=== PATIENT | male | born 1980 | race Caucasian/White ===

== ENCOUNTER 2016-08-20 13:54 | Emergency (ER) | payer BC ==
[2016-08-20 14:18] VITALS: BP 126/86; PULSE 86; RESP 18; TEMP 98.4; O2SAT 98
[2016-08-20] MEDS ORDERED: Bacitracin 500 Units/gm Oint Foilpak UD ONE (15:05)
--- NOTE | 2016-08-20 15:06 | C.PDOC ---
History Of Present Illness 36 year old patient presents to the ED complaining of pain and swelling to the medial aspect of the left foot. Patient reports he was cleaning his BBQ a few days ago and he put the lid on the floor. He accidentally kicked the lid and sustained a shallow laceration to his foot. He notes some bleeding at that time. Today, he followed up with his PMD because he notes swelling and discoloration. He was sent to the ED by his PMD for a TD booster and evaluation. Patient denies fever, numbness or weakness. Time Seen by Provider: 08/20/16 14:22 Chief Complaint (Nursing): Abnormal Skin Integrity History Per: Patient History/Exam Limitations: no limitations Onset/Duration Of Symptoms: Days (few days ago), Worse Since (today) Current Symptoms Are (Timing): Still Present Location Of Injury: Left: Foot (medial aspect) Quality Of Symptoms: Painful, Swollen, Other (discolored) Severity: Mild Pain Scale Rating Of: 3 Recent travel outside of the [place]: No Past Medical History Reviewed: Historical Data, Nursing Documentation, Vital Signs Vital Signs: Last Vital Signs Temp 98.4 F 08/20/16 14:16 Pulse 86 08/20/16 14:16 Resp 18 08/20/16 14:16 BP 126/86 08/20/16 14:16 Pulse Ox 98 08/20/16 18:40 - [facility] Procedures APPLICATION OF SPLINT (10/30/13) Family History: States: Unknown Family Hx - Social History Hx Tobacco Use: No Hx Alcohol Use: No Hx Substance Use: No - Immunization History Hx Tetanus Toxoid Vaccination: No Hx Influenza Vaccination: No Hx Pneumococcal Vaccination: No Review Of Systems Except As Marked, All Systems Reviewed And Found Negative. Constitutional: Negative for: Fever Musculoskeletal: Positive for: Foot Pain (left) Skin: Positive for: Other (laceration to left foot) Neurological: Negative for: Weakness, Numbness Physical Exam - Physical Exam Appears: Non-toxic, No Acute Distress Skin: Warm, Dry Cardiovascular: Rhythm Regular Extremity: Normal ROM, No Pedal Edema, No Calf Tenderness, Capillary Refill (<2 seconds), No Deformity, Other (left foot: bruising ot the medial aspect of the foot with a shallow, linear laceration, (+)warmth (+)full ROM) ED Course And Treatment O2 Sat by Pulse Oximetry: 98 (room air) Pulse Ox Interpretation: Normal Progress Note: Plan: Tetanus Disposition - Disposition Disposition: HOME/ ROUTINE Disposition Time: 15:09 Condition: STABLE Prescriptions: Cephalexin [Keflex] 500 mg PO TID #40 capsule Instructions: Laceration Without Closure (ED) Forms: General Discharge Instructions - Clinical Impression Clinical Impression: Laceration, Laceration of foot - Scribe Statement Steph Cazares Provider Attestation: All medical record entries made by the Bethibisaac were at my direction and personally dictated by me. I have reviewed the chart and agree that the record accurately reflects my personal performance of the history, physical exam, medical decision making, and the department course for this patient. I have also personally directed, reviewed, and agree with the discharge instructions and disposition.
--- NOTE | 2016-08-20 15:09 | C.PDOC ---
Time Seen by Provider: 08/20/16 14:22 Chief Complaint (Nursing): Abnormal Skin Integrity Past Medical History Vital Signs: Last Vital Signs Temp 98.4 F 08/20/16 14:16 Pulse 86 08/20/16 14:16 Resp 18 08/20/16 14:16 BP 126/86 08/20/16 14:16 Pulse Ox 98 08/20/16 14:16 - [facility] Procedures APPLICATION OF SPLINT (10/30/13) - Social History Hx Tobacco Use: No Hx Alcohol Use: No Hx Substance Use: No - Immunization History Hx Tetanus Toxoid Vaccination: No Hx Influenza Vaccination: No Hx Pneumococcal Vaccination: No ED Course And Treatment O2 Sat by Pulse Oximetry: 98 Disposition Counseled Patient/Family Regarding: Studies Performed, Diagnosis, Rx Given - Disposition Disposition: HOME/ ROUTINE Disposition Time: 15:09 Condition: STABLE Prescriptions: Cephalexin [Keflex] 500 mg PO TID #40 capsule Instructions: Laceration Without Closure (ED) Forms: General Discharge Instructions - POA Present On Arrival: None - Clinical Impression Clinical Impression: Laceration, Laceration of foot
== END 2016-08-20 15:14 | disposition home or self-care (01) ==
LOC: C.ER 13:54
DX: S91.312A Laceration without foreign body, left foot, initial encounter (principal); W22.8XXA Striking against or struck by other objects, initial encounter; Y93.G1 Activity, food preparation and clean up; Y92.007 Garden or yard of unspecified non-institutional (private) residence as the place of occurrence of the external cause